=== PATIENT | female | born 1980 | race Caucasian/White ===

== ENCOUNTER → 2017-08-27 | Outpatient (CLI) | payer OTHER ==
[~2017-08-27] MED LIST: ESTRADIOL1 EAC8 TRANSDERM; MULTIVITAMINS PO
== END ==
LOC: RAD 09:41
DX: R10.9 Unspecified abdominal pain (principal); R13.19 Other dysphagia; R11.2 Nausea with vomiting, unspecified; E66.01 Morbid (severe) obesity due to excess calories

== ENCOUNTER → 2017-09-01 | Outpatient (CLI) | payer OTHER ==
[~2017-09-01] VITALS: Ht 162.6 cm; Wt 104.3 kg
--- NOTE | ~2017-09-01 | O ---
[facility] [place] [address] OPERATIVE REPORT Name: ERIKA YOO Room #: REG [facility]#: [id number] Admission: 09/01/17 Attend Phys: Juan Modi MD, F Discharge: Date of : 84 Report #: [id number] THIS REPORT FOR: //name// CC: FAUSTO physician/PCP Juan Modi DATE OF SERVICE: 09/01/2017 SURGEON: Juan Modi MD CMM INSPECTOR: None. PREOPERATIVE DIAGNOSIS: Morbid obesity/weight gain, status post laparoscopic adjustable gastric band placement. POSTOPERATIVE DIAGNOSES: 1. Morbid obesity/weight gain, status post laparoscopic adjustable gastric band placement. 2. Abnormal motion of the adjustable gastric band. PROCEDURE: Thorough esophagogastroduodenoscopy. ANESTHESIA: Monitored anesthetic care (200 mg propofol, 1 mg Versed). ESTIMATED BLOOD LOSS: None. SPECIMEN: None. COMPLICATIONS: None appreciated. INDICATIONS FOR PROCEDURE: This is a 37-year-old female patient being seen for consideration for revisional bariatric surgery. This is part of the workup for removal of the adjustable gastric band, which was placed in 2007. The patient's maximum weight is 284 pounds. She dropped her weight to as low as 204 pounds, then plateaued at 220 pounds and now weighs 245 pounds with a BMI of 42. She has had difficulty with food getting "stuck" and having to drink fluids to get the food down over the past 6 months. She reports that the fluid has been removed from her adjustable gastric band. She does have complaints of reflux and back pain, but denies any postprandial abdominal pain. Prior to placement of her adjustable gastric band, she had tried numerous weight loss programs and plans with limited weight loss success. Any amount of weight she had lost, she quickly regained, plus additional weight, after stopping the modality. She presents now for EGD. DESCRIPTION OF PROCEDURE IN DETAIL: After the risks, benefits, and expectations of the procedure were discussed in detail with the patient, informed consent was [address] [address] OPERATIVE REPORT Name: NAILAERIKA Room #: REG [facility]#: [id number] Admission: 09/01/17 Attend Phys: Juan Modi MD, F Discharge: Date of : 84 Report #: [id number] obtained. The patient was identified in the preoperative holding area. She was taken to the procedure room and was placed in the supine position. A time-out was performed to identify the correct patient and procedure. A bite block was placed. The patient was then given IV sedation. She was placed in the left lateral decubitus position. When adequately sedated, the gastroscope was introduced into the patient's oropharynx and passed down the esophagus to the GE junction where the Z line was measured at 37 cm from the teeth. The scope was then advanced into the cardia of the stomach where enfolding of the adjustable gastric band was seen at 40 cm from the teeth. The scope was then advanced further to the pylorus. The scope was then retroflexed and a retrograde view of the cardia was seen. Enfolding vein of the band was visualized. The patient was slightly awakened and asked to swallow. There appeared to be abnormal motion of the adjustable gastric band. The band also appeared to move with respirations. The scope was then straightened and advanced beyond the pylorus to the third portion of the duodenum. The scope was then slowly withdrawn. The duodenum and stomach were normal without polyps, masses, diverticula or ulcers. No other significant findings were seen. The stomach was decompressed and the scope was slowly withdrawn through the normal-appearing esophagus. After removing the scope, the patient was awakened and taken to the recovery room in stable condition. IMPRESSION: My recommendation is that the adjustable gastric band be removed as she is symptomatic from it and she has been gaining weight despite the band. Beyond this, the patient has dysphagia symptoms with reflux. She should continue a proton pump inhibitor. She will follow up with me on a monthly basis leading up to her potential revisional operation to include removal of the adjustable gastric band and sleeve gastrectomy. <ELECTRONICALLY SIGNED> By: Juan Modi MD, FACS 09/01/17 [id number] [id number] Juan Modi MD, FACS /nt
== END | disposition home or self-care (01) ==
LOC: GI
DX: E66.01 Morbid (severe) obesity due to excess calories (principal); K95.09 Other complications of gastric band procedure; K21.9 Gastro-esophageal reflux disease without esophagitis; Z98.890 Other specified postprocedural states; Z98.84 Bariatric surgery status; Z90.710 Acquired absence of both cervix and uterus; Z79.899 Other long term (current) drug therapy; Z88.8 Allergy status to other drugs, medicaments and biological substances
CPT/HCPCS: 62110; 62900

== ENCOUNTER 2017-11-12 05:29 | Day surgery (SDC) | payer OTHER ==
[2017-11-12] VITALS (8 sets, daily range): BP systolic 100–129; BP diastolic 67–91
[~2017-11-12] VITALS: Ht 162.6 cm; Wt 110.2 kg
--- NOTE | ~2017-11-12 | O ---
[facility] [place] [address] OPERATIVE REPORT Name: ERIKA YOO Room #: DEP [facility]..#: [id number] Admission: 11/12/17 Attend Phys: Juan Modi MD, F Discharge: 11/13/17 Date of : 84 Report #: [id number] THIS REPORT FOR: //name// CC: Blu Modi DATE OF SERVICE: 11/12/2017 SURGEON: Juan Modi M.D. CARETAKER GROUNDS: Lali Alarcon M.D. PREOPERATIVE DIAGNOSES: 1. Morbid obesity (Body mass index 41.7). 2. History of laparoscopic adjustable gastric band placement. POSTOPERATIVE DIAGNOSES: 1. Morbid obesity (Body mass index 41.7). 2. History of laparoscopic adjustable gastric band placement. 3. Intra-abdominal adhesions. 4. Incisional ventral hernia. PROCEDURES: 1. Laparoscopic removal of adjustable gastric band and port. 2. Laparoscopic sleeve gastrectomy. 3. Laparoscopic lysis of adhesions. 4. Laparoscopic primary repair of incisional ventral hernia. ANESTHESIA: General endotracheal anesthesia and local anesthetic. ESTIMATED BLOOD LOSS: 10 mL. SPECIMEN: Adjustable gastric band and port, lateral stomach. COMPLICATIONS: None appreciated. INDICATIONS FOR PROCEDURE: This is a 37-year-old female patient of Dr. Blu Olivo who is status post laparoscopic adjustable gastric band placement in 2007 in [place]. Her maximum weight was 284 pounds. Her weight dropped as low as 204 pounds approximately one year after placement of her adjustable gastric band. Since that time, the patient has gradually gained her weight back up to 244 pounds at her last office visit, with a BMI of nearly 42. The patient has had difficulty with food getting "stuck" and having to drink fluids to get the food down over the past 6 months. All the fluid had been removed from her band. She underwent an EGD in August, showing abnormal motion of the adjustable gastric band. She also has a history of gastroesophageal reflux and back pain. [address] [address] OPERATIVE REPORT Name: ERIKA YOO Room #: DEP [facility] M.R.#: [id number] Admission: 11/12/17 Attend Phys: Juan Modi MD, F Discharge: 11/13/17 Date of : 84 Report #: [id number] She had tried numerous weight loss programs and plans with limited weight loss success prior to her band placement. Any amount of weight she had lost, she quickly regained, plus additional weight, after stopping the modality. She has been cleared from a multidisciplinary standpoint including a medically, psychologically and from a nutrition standpoint. She presents today for laparoscopic removal of her adjustable gastric band and port with possible sleeve gastrectomy with EGD. OPERATIVE FINDINGS: Upon entrance into the abdominal cavity, intra-abdominal adhesions were present. These were as expected with stomach adherent to the liver around the band. Omental adhesions to the anterior abdominal wall were also present and required takedown in order to place the ports. There was no significant erosion of the band into the surrounding tissue, which did not preclude proceeding with sleeve gastrectomy. EGD showed a normal-appearing esophagus with the GE junction and Z line at 38 cm as well as a normal stomach and duodenum to the third portion. There were no polyps, masses, diverticula or ulcers seen. On retroflexion of the scope within the stomach, a significant hiatal hernia was not identified. Laparoscopically, a hiatal hernia was also not found. The gastric sleeve staple line was located 4 cm proximal/lateral to the pylorus, 3 cm lateral to the incisura of the stomach and 1 cm lateral to the GE junction. After creation of the staple line, the gastroscope was used to gently insufflate air into the stomach and perform the leak test, whereby no air bubbles were seen forming within the Tisseel with insufflation of carbon dioxide into the sleeve. Similarly, the endoluminal appearance of the sleeve showed good contouring, with no hemorrhage. The only other significant finding was that of an incisional hernia identified in the area of the adjustable gastric band tubing, where it pierced the fascia and entered the subcutaneous tissue. This required repair with a separate fmhglq-gf-girmv 0 PDS suture laparoscopically. No other significant intra-abdominal pathology was identified. At the conclusion of the operation, sponge, needle and instrument counts were correct. DESCRIPTION OF PROCEDURE IN DETAIL: After the risks, benefits and expectations of the operation were discussed in detail with the patient, informed consent was obtained. The patient was identified in the preoperative holding area. She was given IV antibiotics as documented in the chart in line with SCIP metrics. The patient was then taken to the operating room and she was placed in the supine position. SCDs were placed on the patient's bilateral lower extremities and pneumatic compression was initiated. The patient was then given IV sedation and she was intubated without incident. A bite block and orogastric tube were placed by anesthesia under my direction. The patient was placed in the low-lying dorsal lithotomy position on the beanbag in [facility]. The patient was secured to the operating table. Her abdomen was then prepped and draped in the standard sterile fashion. A time-out was performed to identify the correct patient and procedure. [address] [address] OPERATIVE REPORT Name: ERIKA YOO Room #: DEP [facility]#: [id number] Admission: 11/12/17 Attend Phys: Juan Modi MD, F Discharge: 11/13/17 Date of : 84 Report #: [id number] Local anesthetic was infiltrated into the skin and subcutaneous tissue in the left supraumbilical area, where a small transverse skin robert was made and a 5-mm Visiport was placed intraperitoneally with a 0-degree angled laparoscope. Pneumoperitoneum was achieved with insufflation of carbon dioxide to 15 mmHg. A 30-degree angled laparoscope was inserted. Additional 5-mm ports were placed in the left lower quadrant at the left mid and left lateral abdomen. Each were placed under direct visualization after local anesthetic was infiltrated into the skin and subcutaneous tissue and appropriately sized transverse incisions were made. After placing these ports, lysis of adhesions was necessary to clear omentum from the anterior abdominal wall and create a space for placement of the right mid abdominal 15-mm port, which was placed in a similar fashion with local anesthetic and an appropriately sized incision. The patient was then placed in the reverse Trendelenburg position. Local anesthetic was infiltrated into the skin and subcutaneous tissue in the subxiphoid area, where a small transverse incision was made and a 5-mm Visiport obturator was used to create a passageway for the Chetna liver retractor. After its placement, the liver was retracted in a cephalad and anterior direction. The retractor was held in place with the iron electrical intern device. Operative findings were as noted above. The adhesions from the stomach to the liver were carefully taken down with blunt dissection, sharp dissection and judicious use of the ultrasonic dissector. Dissection was carried down to the adjustable gastric band. The tissue overlying the band was divided sharply with some use of ultrasonic dissector when possible. The pars flaccida was opened as well. After exposing the band, the band was unbuckled and the band was divided to allow for its removal from around the stomach. The tubing was disconnected and the band was removed through the 15-mm port site. There was no significant excoriation or erosion into the stomach. The plication sutures to secure the band were divided along with scar tissue to help normalize the gastric anatomy. It was at this point that I elected to proceed with the sleeve gastrectomy. The gastrosplenic ligament and short gastric vessels were divided with the ultrasonic dissector with good hemostasis up to the left kimmy of the diaphragm. The kimmy was dissected and there was no evidence for hiatal hernia. The anatomy was further normalized. The gastrocolic ligament was then divided to an area that was measured to be 4 cm lateral to the pylorus. The gastroscope was then inserted and EGD performed with findings as noted above. Thereafter, the gastroscope was left in place along the lesser curvature of the stomach to serve as a 34-Georgian bougie. The stomach was decompressed with the orogastric tube, then removed by anesthesia under my direction. The laparoscopic 60-mm powered CASSIDY stapler was then used to create the sleeve and perform the gastrectomy. Each staple load was buttressed with Breanna-Strips. The initial two firings at the distal aspect of the stomach were with black loads; the remaining firings were with green loads. After stapling off the [address] [address] OPERATIVE REPORT Name: ERIKA YOO Room #: DEP [facility] M.R.#: [id number] Admission: 11/12/17 Attend Phys: Juan Modi MD, F Discharge: 11/13/17 Date of : 84 Report #: [id number] stomach and dividing the Breanna-Strips appropriately, the excised stomach was placed in the right upper quadrant of the abdomen for later removal. The Hemoclips x3 were placed on the distal aspect of the sleeve for hemostasis. The excised stomach was then removed through the 15-mm port site under direct visualization. This required some stretching of the fascia with a Pean clamp. An 0 PDS suture was then placed with the Aden-Tee laparoscopic fascial closure device. The suture was tagged and the port was replaced. The abdominal cavity was re-entered. 10 mL of Tisseel was applied to the gastric sleeve staple line with the [employer] aerosolizer. Immediately after applying the Tisseel, the gastroscope was used to gently insufflate air into the sleeve and slowly withdraw the scope. Prior to its withdrawal from the stomach, the stomach was decompressed. The scope was then slowly withdrawn through the normal-appearing esophagus. There was no evidence for leak, as described above. The Chetna liver retractor was then removed. No other significant adhesions within the abdominal cavity were present. The abdominal cavity was then desufflated after tying the port site fascial suture under direct visualization to ensure no incorporation of intra-abdominal content. The ports were left in place temporarily. Removal of the adjustable gastric band reservoir was undertaken next. The port was palpable adjacent to the 15-mm port site. Electrocautery was used to dissect through the subcutaneous tissue and divide the capsule around the device. The sutures holding the device in place were removed. The port and a small amount of tubing were then removed. A hernia was palpable in the fascia. A ujmubk-sf-othqo 0 PDS suture was placed with the Aden-Tee laparoscopic fascial closure device after re-insufflating the abdominal cavity. After ensuring complete closure of the hernia defect, the suture was tied. The port site fascial suture was tied as well. The abdominal cavity was desufflated and the remaining ports were removed. After desufflating the abdomen, the incisions were closed with interrupted subcuticular 4-0 Monocryl sutures and Dermabond. The excised stomach held 1000 mL of fluid on the backtable. <ELECTRONICALLY SIGNED> By: Juan Modi MD, FACS 11/16/17 2150 [id number] Juan Modi MD, FACS /nt
--- NOTE | ~2017-11-12 | PATH ---
[facility] [place] [address] PATHOLOGY RPT PROCEDURE Name: ERIKA SYMTH Room #: DEP [facility] M.R.#: [id number] Admission: 11/12/17 Date of : 84 Discharge: 11/13/17 Report #: [id number] Path Case #: [id number] [facility] Accession Number: [id number] . 01 Material submitted: . PART A: LAP BAND PART B: GASTRIC SLEEVE . 01 Clinical history: . Morbid obesity . 02 Diagnosis: A. Lap band-port, removal: - 55 cm soft tubing material attached to a port, compatible with a lap band (gross exam). - Dense fibrous tissue with moderate chronic inflammation, as well as reactive changes. . B. Stomach, partial stomach, partial sleeve gastrectomy: - No diagnostic abnormalities present, history of morbid obesity. (IUV:mgr; 11/15/17) QRQ/11/15/2017 . 02 Electronically signed: . Korin Gu MD, Pathologist NPI- [id number] . 01 Gross description: . A. The specimen is received fresh, labeled "Erika Smyth and lap band-port ", is a triangular white port with attached lap band measuring 3.0 x 1.5 cm with attached white tubing measuring 55 cm in length by 0.2 cm in diameter. The back of the port is inscribed with "PORT-A-CATH" and "[id number]". The Lap Band has an inscription "[place]". Attached to the port are three fragments of jaramillo-pink smooth soft tissue with sutures measuring 1.5 x 1.2 x 0.5 cm in aggregate. The soft tissues are entirely submitted in A1. Photographs are taken. . B. The specimen is received in formalin, labeled "Erika Smyth and gastric sleeve", is a portion of stomach (23 x 4.7 x 2.0 cm) with a stapled margin. The serosal surface is jaramillo-white and smooth. Opening the specimen reveals a jaramillo-red mucosa with no discrete polyps, masses and usual folds. [employer] sections submitted in B1-B3. . (SWS; 11/12/2017) SHS/SHS . 02 Pathologist provided ICD-10: [address] [address] PATHOLOGY RPT PROCEDURE Name: ERIKA SMYTH Room #: DEP [facility].Kaylee.#: [id number] Admission: 11/12/17 Date of : 84 Discharge: 11/13/17 Report #: [id number] Path Case #: [id number] [id number], E66. [facility] . [id number], [id number] Performed at: [address], [place] [id number] MD Flakito Burrows MD Phone: [phone] Performed at: [address] [id number] MD Korin Gu MD Phone: [phone]
[2017-11-13 03:45] VITALS: BP 96/66
[2017-11-13 06:06] LABS: ABSOLUTE NEUTROPHILS 7.4 thou/uL (1.4-8.2); BASOPHILS 0.2 % (0.0-2.0); EOSINOPHILS 0.2 % (0.0-3.0); HEMATOCRIT 36.9 % (37.0-47.0); HEMOGLOBIN 12.4 gm/dL (12.0-15.0); LYMPHOCYTES 12.7 % (24.0-44.0); MCH 29.5 pg (26.0-34.0); MCHC 33.7 g/dL (28.0-37.0); MCV 87.6 fL (80.0-100.0); MONOCYTES 11.4 % (1.0-8.0); PLATELET COUNT 217 thou/uL (150-400); POLYS 75.5 % (36.0-66.0); RBC 4.21 mil/uL (4.20-5.00); RDW 13.4 % (10.5-14.5); WBC 9.8 thou/uL (4.0-11.0)
[2017-11-13 06:20] LABS: CALCIUM 8.2 mg/dL (8.5-10.1); CREATININE 0.8 mg/dL (0.6-1.0); POTASSIUM 3.8 mmol/L (3.5-5.1)
[2017-11-13 08:15] VITALS: BP 104/63
[2017-11-13 14:20] VITALS: BP 104/63
[2017-11-13 16:14] VITALS: BP 104/64
== END 2017-11-13 16:33 | disposition home or self-care (01) ==
LOC: OR 05:29 → TBA 05:29 → OR 10:20 → 4W 10:20 → OR 12:24
PROVIDERS: Surgery
DX: E66.01 Morbid (severe) obesity due to excess calories (principal); K43.2 Incisional hernia without obstruction or gangrene; K66.0 Peritoneal adhesions (postprocedural) (postinfection); Z68.41 Body mass index [BMI] 40.0-44.9, adult; Z98.84 Bariatric surgery status; K21.9 Gastro-esophageal reflux disease without esophagitis; Z90.710 Acquired absence of both cervix and uterus; Z98.890 Other specified postprocedural states; Z88.8 Allergy status to other drugs, medicaments and biological substances; Z79.899 Other long term (current) drug therapy
CPT/HCPCS: 10047; 50010; 50101; 50222; 50249; 50386; 50555; 50739; 50740; 50962; 51437; 51489; 52182; 52265; 53307; 53311; 54022; 54118; 55245; 56462; 56525; 56526; 57092; 62110; 62900; 70005